=== PATIENT | female | born 1990 | race Asian ===

== ENCOUNTER 2019-03-27 04:14 | Emergency (ER) | payer BC, OTHER ==
[2019-03-27 05:12] VITALS: BP 105/68; PULSE 78; TEMP 98.2; BMI 22.1
[2019-03-27] MEDS ORDERED: KETOROLAC TROMETHAMINE 30 MG/1 ML VIAL IM ONE (05:22)
[2019-03-27] MEDS ORDERED: METHOCARBAMOL 500 MG TABLET PO ONE (05:22)
[2019-03-27] MEDS ORDERED: METHOCARBAMOL 500 MG TABLET ONE (05:28)
[2019-03-27] MEDS ORDERED: KETOROLAC TROMETHAMINE 30 MG/1 ML VIAL ONE (05:28)
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
== END 2019-03-27 06:18 | disposition home or self-care (01) ==
LOC: JER 04:14
PROC: 3E0233Z Introduction of Anti-inflammatory into Muscle, Percutaneous Approach (ICD-10-PCS; principal; 2019-03-27)
DX: S39.012A Strain of muscle, fascia and tendon of lower back, initial encounter (principal); V49.49XA Driver injured in collision with other motor vehicles in traffic accident, initial encounter; Y92.414 Local residential or business street as the place of occurrence of the external cause; Y93.89 Activity, other specified; Y99.8 Other external cause status
CPT/HCPCS: 99282-25